=== PATIENT | female | born 1980 | race Hispanic/Latino ===

== ENCOUNTER 2024-01-17 17:45 | Emergency (ER) | payer BC ==
[~2024-01-17] VITALS: Ht 154.9 cm; Wt 111.8 kg
[2024-01-17] MEDS: ACETAMINOPHEN 325 MG TAB PO ONE (18:32)
[2024-01-17] MEDS: ONDANSETRON HCL 4 MG ORAL DISINTEGRATING TAB PO ONE (18:32)
[2024-01-17] MEDS: KETOROLAC TROMETHAMINE 30 MG/ML VIAL IM ONE (18:32)
[2024-01-17] MEDS ORDERED: CEFDINIR300 MG PO (19:19)
[2024-01-17] MEDS ORDERED: ZANAFLEX4 MG PO (19:19)
[2024-01-17] MEDS ORDERED: ONDANSETRON ODT4 MG PO (19:19)
[2024-01-17] MEDS ORDERED: IBUPROFEN200 MG PO (19:19)
[2024-01-17 20:02] VITALS: PULSE 71; RESP 18; TEMP 98.2
[2024-01-17 20:17] VITALS: BP 122/63; PULSE 68; RESP 18; TEMP 98.3; O2SAT 99
== END 2024-01-17 20:02 | disposition home or self-care (01) ==
LOC: FSED 17:47
DX: R30.0 Dysuria (principal); N39.0 Urinary tract infection, site not specified; R10.30 Lower abdominal pain, unspecified; R11.0 Nausea; M54.9 Dorsalgia, unspecified; E11.9 Type 2 diabetes mellitus without complications; D64.9 Anemia, unspecified; Z98.84 Bariatric surgery status; F17.210 Nicotine dependence, cigarettes, uncomplicated
CPT/HCPCS: 74176; 81003; 81025; 99283; J1885; Q0162